=== PATIENT | female | born 1970 | race Caucasian/White ===

== ENCOUNTER 2023-11-21 11:31 | Observation (INO) | payer OTHER, SELFPAY ==
[2023-11-21] VITALS (18 sets, daily range): BP systolic 97–135; BP diastolic 46–83; PULSE 84–103; RESP 14–24; TEMP 36.8–37.6; O2SAT 96–100; BMI 23.1; BMI 27.5
--- NOTE | 2023-11-21 11:34 | ECG_ITS ---
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 Measurements Intervals [place] Rate: 99 P: 59 VT: 132 QRS: 59 QRSD: 77 T: 69 QT: 328 QTc: 422 Interpretive Statements SINUS RHYTHM No previous ECG available for comparison Electronically Signed On 11-22-2023 23:27:31 [employer] by Shiraz Carroll M.D. [id number]
--- NOTE | 2023-11-21 11:34 | XR_ITS ---
WS: [id number] Portable AP upright chest, 11/21/2023 Clinical Data: short of breath, cough Comparison: Portable chest, 07/07/2013 Findings: No nodules, masses or effusions are seen. The heart is normal. The pulmonary vascularity is not increased. No pneumonia or pneumothorax is seen. There is a hiatal hernia behind the heart. The right midclavicular fracture has healed. Impression: Negative chest.
--- NOTE | 2023-11-21 12:56 | ED_ITS ---
HPI - SOB/Dyspnea 2 General: Chief Complaint: Shortness of Breath/Dyspnea Stated Complaint: sob Time Seen by Provider: 11/21/23 12:56 History of Present Illness: HPI Narrative: 53-year-old female presents emergency de partment with complaints of increased shortness of breath worsening over the previous 1 month. She states she has exertional dyspnea that is worsening over the previous 1 week. She states she does have a history of Crohn's disease and has in the past required colon resection and then reanastomosis. 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 She states that she has not had a colonoscopy for over 10 years. Review of Systems 2 General: Reports: 10 or more systems reviewed and unremarkable except in HPI and below Const: Reports: fatigue and malaise GI: Reports: melena Physical Exam 2 Narrative: EXAM NARRATIVE: Constitutional: the patient appears well nourished and with normal development. Vital signs reviewed as documented. HENMT: Normocephalic, atraumatic. External ears normal appearance without drainage. Nose without drainage, normal appearance. Mucus membranes moist. Neck is supple, No jugular venous distension, trachea is midline, no appreciable carotid bruits. No lymphadenopathy. No meningeal signs. Flexion, extension and lateral rotation is without pain. Eyes: Pupils are equal, round, reactive to light and accommodation. No scleral icterus. Extra-ocular movement are intact. Thorax is symmetrical and with equal rise and fall with respirations. Resp: Lungs are clear to auscultation. No wheezes, rales, crackles or ronchi at present. Cardio: Regular rate and rhythm. Positive S1, S2. No appreciable murmurs, rubs or gallops. GI: Abdominal exam reveals normal bowel sounds to all quadrants. No organomegaly. No obvious palpable masses noted. No hepatomegally appreciated. Soft, non-tender to palpation. Extremity: Extremities are non-edematous and both femoral and pedal pulses are 2+ and equal bilaterally. Moves all extremities well, sensation in all extremities. Neuro: Alert and oriented x4, person, place, time and situation. Cranial nerves II through XII are grossly intact, there is no focal neurological deficits that I can appreciate at present. Motor strength in the upper and lower extremities are equal and bilateral 5/5. Psych: Cooperative, calm, normal thought process, appropriate judgment. Skin: No lesions, rashes. No gross abnormalities noted. Back: Symmetrical, no obvious deformity, No CVA tenderness Course 2 Vital Signs: Vital signs: Vital Signs Temperature 99.3 F 11/21/23 16:57 Pulse Rate 88 11/21/23 18:06 Respiratory Rate 14 11/21/23 16:37 Blood Pressure 118/46 11/21/23 18:00 Pulse Oximetry 97 11/21/23 18:00 Oxygen Delivery Me thod Room Air 11/21/23 15:30 MDM - SOB/Dyspnea Medical Decision Making Physical exam completed and documented, I will obtain laboratory evaluation to include a CBC, CMP, lipase, urinalysis, and a CT scan of the patient's abdomen pelvis to evaluate for possible differential diagnosis of bowel obstruction, incarcerated hernia, abdominal wall strain, abdominal wall hematoma, constipation. I will provide the patient IV access and IV fluid as well as a CT scan abdomen pelvis with contrast for evaluation for possible colitis, acute appendicitis, diverticulitis. I will admit the patient given her hemoglobin level was 5.7 I did discuss with the patient the need for admission and additional evaluation given her history of Crohn's disease. Lab Data I reviewed the patient's lab results. 11/21/23 14:45 11/21/23 14:45 Labs/Radiology: Radiology Impressions Chest/Abdomen/Pelvis CT 11/21/23 14:53 IMPRESSION: No acute findings. IMPRESSION: No acute findings. Laboratory Results WBC 5.59 10^3/uL (3.29-11.43) 11/21/23 14:45 RBC 3.26 10^6/uL (3.85-5.65) L 11/21/23 14:45 Hgb 5.70 g/dL (11.27-16.99) L* 11/21/23 14:45 Hct 21.6 % (36-47) L 11/21/23 14:45 MCV 66.3 fl (85-98) L 11/21/23 14:45 MCH 17.5 pg (27-33) L 11/21/23 14:45 MCHC 26.4 g/dL (30-55) L 11/21/23 14:45 RDW 18.5 % (12.1-15.1) H 11/21/23 14:45 Plt Count 510 10^3/cmm (157-399) H 11/21/23 14:45 MPV 9.0 fL (7.4-10.4) 11/21/23 14:45 Neut % (Auto) 63.5 % 11/21/23 14:45 Lymph % (Auto) 27.9 % 11/21/23 14:45 [place] % (Auto) 7.3 % 11/21/23 14:45 Eos % (Auto) 0.7 % 11/21/23 14:45 Baso % (Auto) 0.4 % 11/21/23 14:45 Neut # (Auto) 3.55 10^3/uL (1.8-7.7) 11/21/23 14:45 Lymph # (Auto) 1.6 10^3/uL (0.8-4.8) 11/21/23 14:45 [place] # (Auto) 0.4 10^3/uL (0.2-0.9) 11/21/23 14:45 Eos # (Auto) 0.0 10^3/uL (0.0-0.8) 11/21/23 14:45 Baso # (Auto) 0.0 10^3/uL (0.0-0.1) 11/21/23 14:45 Nucleated RBC % (auto) 0 % 11/21/23 14:45 Nucleated RBCs # 0.0 /100WBC 11/21/23 14:45 D-Dimer 0.46 ug/mLFEU (0-0.59) 11/21/23 14:45 Sodium 135 mmol/L (136-145) L 11/21/23 14:45 Potassium 3.4 mmol/L (3.5-5.1) L 11/21/23 14:45 Chloride 100 mmol/L (98-107) 11/21/23 14:45 Carbon Dioxide 25 mmol/L (22-29) 11/21/23 14:45 Anion Gap 13.4 (5-19) 11/21/23 14:45 BUN 11 mg/dL (6-20) 11/21/23 14:45 Creatinine 0.6 mg/dL (0.5-0.9) 11/21/23 14:45 GFR Calculation 103.8 mL/min (90-130) 11/21/23 14:45 Glucose 96 mg/dL (65-115) 11/21/23 14:45 Calculated Osmolality 279 mOsm/kg (285-295) L 11/21/23 14:45 Calcium 9.0 mg/dL (8.5-10.5) 11/21/23 14:45 Total Bilirubin 0.3 mg/dL (0.15-1.2) 11/21/23 14:45 AST 12 U/L (0-32) 11/21/23 14:45 ALT 7 U/L (0-33) 11/21/23 14:45 Alkaline Phosphatase 52 U/L (35-105) 11/21/23 14:45 Troponin T Baseline 8 ng/L (0-10) 11/21/23 14:45 NT-Pro-B Natriuret Pep 84 pg/mL (0-125) 11/21/23 14:45 Total Protein 7.0 g/dL (6.6-8.7) 11/21/23 14:45 Albumin 4.2 g/dL (3.5-5.2) 11/21/23 14:45 Globulin 2.8 g/dL (1.3-4.6) 11/21/23 14:45 SARS-CoV-2 Ag (Rapid) negative (Negative) 11/21/23 13:56 Blood Type O Positive 11/21/23 15:18 Rho(D) Type Rh positive 11/21/23 15:18 Antibody Screen Negative 11/21/23 15:18 Crossmatch See Detail 11/21/23 15:18 All radiology interpretation(s) finalized by discharge Discharge Plan Discharge Patient Disposition: Placed in Observation Admit Provider: James Dahl Clinical Impression: Crohn's disease, Anemia Gastrointestinal bleed Qualifiers: Gastritis type: unspecified gastritis Coding Level of Care Code ED 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
--- NOTE | 2023-11-21 13:54 | PC.PHAR ---
pt states she takes no prescription medications-states about 3 weeks ago she took some mucinex but hasnt taken it since-pt states a week ago she took 2 81mg aspirin and then 3 days ago took 2 more 81mg aspirins states she normally doesnt take-no meds pull up on ext med history
[2023-11-21 14:29] LABS: SARS Covid-2 Antigen negative (Negative)
--- NOTE | 2023-11-21 14:53 | CTR_ITS ---
PROCEDURE INFORMATION: Exam: CTA Chest With Contrast Exam date and time: 11/21/2023 3:26 PM Age: 53 years old Clinical indication: Other: Abnormal labs; Shortness of breath; Prior surgery; Surgery date: 6+ months; Surgery type: Colon; Additional info: Dyspnea/weakness TECHNIQUE: Imaging protocol: Computed tomographic angiography of the chest with contrast. Exam focused on the arteries. 3D rendering (Not supervised by radiologist): MIP and/or 3D reconstructed images were created by the technologist. Radiation optimization: All CT scans at this facility use at least one of these dose optimization techniques: automated exposure control; mA and/or kV adjustment per patient size (includes targeted exams where dose is matched to clinical indication); or iterative reconstruction. Contrast material: OMNI 350; Contrast volume: 100 ml; Contrast route: INTRAVENOUS (IV); COMPARISON: CR XR chest 1V portable [id number] 11/21/2023 12:40 PM RADIATION DOSE METRICS: Total DLP (mGy-cm): 957.36 FINDINGS: Pulmonary arteries: Normal. No pulmonary emboli. Aorta: Unremarkable. No aortic aneurysm. No aortic dissection. Lungs: Unremarkable. No consolidation. No masses. Pleural spaces: Unremarkable. No pneumothorax. No pleural effusion. Heart: Unremarkable. No cardiomegaly. No pericardial effusion. Lymph nodes: Unremarkable. No enlarged lymph nodes. Diaphragm: Moderate hiatal hernia. Bones/joints: Unremarkable. No acute fracture. Soft tissues: Unremarkable. PROCEDURE INFORMATION: Exam: CT Abdomen And Pelvis With Contrast Exam date and time: 11/21/2023 3:26 PM Age: 53 years old Clinical indication: Other: Abnormal labs; Shortness of breath; Prior surgery; Surgery date: 6+ months; Surgery type: Colon; Additional info: Dyspnea/weakness TECHNIQUE: Imaging protocol: Computed tomography of the abdomen and pelvis with contrast. Radiation optimization: All CT scans at this facility use at least one of these dose optimization techniques: automated exposure control; mA and/or kV adjustment per patient size (includes targeted exams where dose is matched to clinical indication); or iterative reconstruction. Contrast material: OMNI 350; Contrast volume: 100 ml; Contrast route: INTRAVENOUS (IV); COMPARISON: CR XR chest 1V portable [id number] 11/21/2023 12:40 PM RADIATION DOSE METRICS: Total DLP (mGy-cm): 957.36 FINDINGS: Liver: Small scattered hepatic cysts. Gallbladder and bile ducts: Normal. No calcified stones. No ductal dilation. Pancreas: Normal. No ductal dilation. Spleen: Normal. No splenomegaly. Adrenal glands: Normal. No mass. Kidneys and ureters: Normal. No hydronephrosis. Stomach and bowel: Unremarkable. No obstruction. No mucosal thickening. Appendix: No evidence of appendicitis. Intraperitoneal space: Unremarkable. No free air. No significant fluid collection. Vasculature: Unremarkable. No abdominal aortic aneurysm. Lymph nodes: Unremarkable. No enlarged lymph nodes. Urinary bladder: Unremarkable as visualized. Reproductive: Unremarkable as visualized. Bones/joints: Unremarkable. No acute fracture. Soft tissues: Unremarkable. CT/CT angio chest w abd pel w con IMPRESSION: No acute findings. IMPRESSION: No acute findings.
[2023-11-21 14:56] LABS: Basophils % 0.4 %; Eosinophils % 0.7 %; Hematocrit 21.6 % (36-47); Lymphocytes # 1.6 10^3/uL (0.8-4.8); Lymphocytes % 27.9 %; Mean Corpuscular HGB Conc 26.4 g/dL (30-55); Mean Corpuscular Hemoglobin 17.5 pg (27-33); Mean Corpuscular Volume 66.3 fl (85-98); Monocytes # 0.4 10^3/uL (0.2-0.9); Monocytes % 7.3 %; Neutrophils # 3.55 10^3/uL (1.8-7.7); Neutrophils % 63.5 %; Nucleated Red Blood Cells % 0 %; Platelet Count 510 10^3/cmm (157-399); Red Blood Count 3.26 10^6/uL (3.85-5.65); Red Cell Distribution Width 18.5 % (12.1-15.1); White Blood Count 5.59 10^3/uL (3.29-11.43)
[2023-11-21 15:09] LABS: D Dimer 0.46 ug/mLFEU (0-0.59)
[2023-11-21 15:14] LABS: Troponin(5th) Baseline 8 ng/L (0-10)
[2023-11-21 15:23] LABS: Alanine Aminotransferase 7 U/L (0-33); Albumin Level 4.2 g/dL (3.5-5.2); Alkaline Phosphatase 52 U/L (35-105); Anion Gap 13.4 (5-19); Aspartate Amino Transferase 12 U/L (0-32); Blood Urea Nitrogen 11 mg/dL (6-20); Carbon Dioxide 25 mmol/L (22-29); Chloride 100 mmol/L (98-107); Globulin 2.8 g/dL (1.3-4.6); Glomerular Filtration Rate 103.8 mL/min (90-130); Glucose 96 mg/dL (65-115); NT Pro B Type Natriuretic Pept 84 pg/mL (0-125); Osmolality Calculated 279 mOsm/kg (285-295); Potassium 3.4 mmol/L (3.5-5.1); Sodium 135 mmol/L (136-145); Total Bilirubin 0.3 mg/dL (0.15-1.2)
[2023-11-21] MEDS: iohexol 350 mg/mL 500 mL Btl (per mL) IV (15:29)
[2023-11-21] MEDS: sodium chloride 0.9% 100 mL Bag 50 ML IV (18:04)
--- NOTE | 2023-11-21 18:04 | P.HP_ITS ---
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 Fairly active for her age, does not smoke or drink alcohol. She does not take multivitamins on daily basis. No chest pain but noticed some heaviness all over her body. In the ER she has been diagnosed with acute microcytic severe anemia she has been given 2 unit PRBC Review of Systems 2 Const: Denies: fever(s) Eyes: Denies: change in vision ENMT: Denies: throat pain Card: Denies: chest pain Resp: Denies: dyspnea GI: Denies: abdominal pain Medications/Allergies Home Medications Medication Instructions Recorded Confirmed Last Taken Type aspirin 81 mg tablet,delayed 162 mg PO .ONE TIME DOSE 11/21/23 11/21/23 3 Days Ago History release ~11/18/23 doesnt normally take Allergies Allergy/AdvReac Type Severity Reaction Status Date / Time No Known Allergies Allergy Verified 11/21/23 13:52 PFSH Acute 2 PFSH: Medical History Crohn's disease Vitals/I&O/Wt Last Vital Signs Temp 99.3 F 11/21/23 16:57 Pulse 96 11/21/23 16:37 Resp 14 11/21/23 16:37 BP 118/46 11/21/23 17:45 Pulse Ox 98 11/21/23 17:45 O2 Del Method Room Air 11/21/23 15:30 11/21/23 11/21/23 11/21/23 06:59 14:59 22:59 Intake Total 0 / 0 Balance 0 / 0 Weight last 48 hrs Weight 61.235 kg Physical Exam 2 Narrative: Pleasant cooperative Hemodynamically stable GCS 15 Currently on room air Abdomen soft No active GI bleed Pleasant cooperative Doing well on room air Data 11/22/23 04:16 11/22/23 04:16 A&P Assessment and plan (1) Gastrointestinal bleed: Qualifiers: Gastritis type: unspecified gastritis (2) Crohn's disease: (3) Anemia: (4) Iron deficiency anemia: (5) Low vitamin B12 level: Plan Acute microcytic anemia Requested 2 unit PRBC Check iron, B12, no active GI bleed, hemodynamic stable Admit to [facility] Anticipating discharge within 48 hours DVT prophylaxis contraindicated only use SCDs Patient will need colonoscopy outpatient, requested TSH as well Attestations 2 Medical Necessity Statement*: Likely discharge tomorrow, anticipating less than 48 hours in the hospital Diagnoses Gastrointestinal bleed K92.2 Gastritis type: unspecified gastritis Crohn's disease K50.90 Anemia D64.9 Iron deficiency anemia D50.9 Low vitamin B12 level R79.89
[2023-11-21 19:49] LABS: Ferritin 8 ng/mL (15-150); Iron 9 ug/dL (37-145); Percent Saturation 1.9 % (20-50); Thyroid Stimulating Hormone 0.99 uIU/mL (0.27-4.20); Total Iron Binding Capacity 472 mcg/dl; Unsaturated Iron Binding 463 ug/dL (112-347); Vitamin B12 273 pg/mL (232-1245)
[2023-11-22] VITALS: BP 117/77; PULSE 97; RESP 17; TEMP 37; O2SAT 97
[2023-11-22 01:19] LABS: Troponin 5 2HR 9.25 ng/L (0-10)
[2023-11-22 01:27] LABS: Troponin 5 2HR Delta 1.25 ABS# (0-10)
[2023-11-22 01:28] LABS: Hematocrit 29.6 % (36-47)
[2023-11-22 04:31] VITALS: BP 103/68; PULSE 79; RESP 17; TEMP 36.9; O2SAT 96
[2023-11-22 05:14] LABS: Basophils % 0.4 %; Eosinophils # 0.2 10^3/uL (0.0-0.8); Eosinophils % 2.6 %; Hematocrit 29.2 % (36-47); Lymphocytes # 2.5 10^3/uL (0.8-4.8); Lymphocytes % 35.6 %; Mean Corpuscular HGB Conc 28.8 g/dL (30-55); Mean Corpuscular Hemoglobin 20.6 pg (27-33); Mean Corpuscular Volume 71.6 fl (85-98); Mean Platelet Volume 10.4 fL (7.4-10.4); Monocytes # 0.5 10^3/uL (0.2-0.9); Monocytes % 7.6 %; Neutrophils # 3.71 10^3/uL (1.8-7.7); Neutrophils % 53.7 %; Nucleated Red Blood Cells % 0 %; Platelet Count 311 10^3/cmm (157-399); Red Blood Count 4.08 10^6/uL (3.85-5.65); Red Cell Distribution Width 20.8 % (12.1-15.1); White Blood Count 6.93 10^3/uL (3.29-11.43)
[2023-11-22 05:39] VITALS: BMI 27.3
[2023-11-22 05:44] LABS: Alanine Aminotransferase 6 U/L (0-33); Albumin Level 3.7 g/dL (3.5-5.2); Alkaline Phosphatase 52 U/L (35-105); Anion Gap 14.4 (5-19); Aspartate Amino Transferase 12 U/L (0-32); Blood Urea Nitrogen 7 mg/dL (6-20); Calcium 8.3 mg/dL (8.5-10.5); Carbon Dioxide 24 mmol/L (22-29); Chloride 105 mmol/L (98-107); Globulin 2.5 g/dL (1.3-4.6); Glomerular Filtration Rate 103.8 mL/min (90-130); Glucose 93 mg/dL (65-115); Magnesium 2.2 mg/dL (1.7-2.3); Osmolality Calculated 288 mOsm/kg (285-295); Potassium 3.4 mmol/L (3.5-5.1); Sodium 140 mmol/L (136-145); Total Bilirubin 0.5 mg/dL (0.15-1.2); Total Protein 6.2 g/dL (6.6-8.7)
[2023-11-22 06:05] LABS: Troponin 5 6HR 10.79 ng/L (0-10)
[2023-11-22 06:06] LABS: Troponin 5 6HR Delta 2.79 ng/L (0-12)
[2023-11-22 07:51] VITALS: BP 92/61; PULSE 75; RESP 18; TEMP 36.9; O2SAT 97
[2023-11-22 08:25] VITALS: PULSE 75; RESP 16; O2SAT 97
[2023-11-22] MEDS: pantoprazole 40 mg SDV IVP (09:28)
--- NOTE | 2023-11-22 10:24 | PM.DCS ---
Discharge Providers Date of Admission: 11/21/23 17:18 Date of Discharge: November 22, 2023 Attending Provider at Admission: James Dahl MD Attending Provider at Discharge: James Dahl MD Primary Care Provider: Dann Leon Diagnoses at Discharge Discharge Diagnosis (1) Gastrointestinal bleed: Status: Acute Qualifiers: Gastritis type: unspecified gastritis (2) Crohn's disease: Status: Inactive (3) Anemia: Status: Acute (4) Iron deficiency anemia: Status: Acute (5) Low vitamin B12 level: Status: Acute Reason for Visit Reason for Visit: sob Hospital Course Hospital Course 53 female who was admitted for management evaluation of fatigue lethargy related to severe anemia, she does have low iron, low vitamin B12, she has been given 1 bag of iron 2 unit PRBC, patient will need an EGD and colonoscopy in outpatient settings, hemodynamically stable, no active GI bleed, no history of thalassemia, D-dimer unremarkable Patient is wanting to return home agreeable to follow-up with a general surgeon for her endoscopy. No previous history of cancer. Disease in remission. I will give her iron, B12, Protonix and sucralfate Physical Exam Narrative: Awake and alert GCS 15 Pleasant cough Abdomen soft S1, S2 Discharge Data Studies Completed and Pending Completed Studies During Hospitalization Category Date Time Status CT angio chest w abd pel w con Stat Cat Scan 11/21/23 14:53 Completed XR chest 1V portable [id number] Stat Exams 11/21/23 11:34 Completed Pending at discharge Category Date Time Status Leukocyte Reduced RBC Stat Lab 11/21/23 15:18 Results Type and Screen Stat Lab 11/21/23 15:18 Results Radiology Impressions Chest/Abdomen/Pelvis CT 11/21/23 14:53 IMPRESSION: No acute findings. IMPRESSION: No acute findings. Laboratory Results WBC 6.93 10^3/uL (3.29-11.43) 11/22/23 04:16 RBC 4.08 10^6/uL (3.85-5.65) 11/22/23 04:16 Hgb 8.40 g/dL (11.27-16.99) L 11/22/23 04:16 Hct 29.2 % (36-47) L 11/22/23 04:16 MCV 71.6 fl (85-98) L D 11/22/23 04:16 MCH 20.6 pg (27-33) L D 11/22/23 04:16 MCHC 28.8 g/dL (30-55) L D 11/22/23 04:16 RDW 20.8 % (12.1-15.1) H 11/22/23 04:16 Plt Count 311 10^3/cmm (157-399) D 11/22/23 04:16 MPV 10.4 fL (7.4-10.4) 11/22/23 04:16 Neut % (Auto) 53.7 % 11/22/23 04:16 Lymph % (Auto) 35.6 % 11/22/23 04:16 [place] % (Auto) 7.6 % 11/22/23 04:16 Eos % (Auto) 2.6 % 11/22/23 04:16 Baso % (Auto) 0.4 % 11/22/23 04:16 Neut # (Auto) 3.71 10^3/uL (1.8-7.7) 11/22/23 04:16 Lymph # (Auto) 2.5 10^3/uL (0.8-4.8) 11/22/23 04:16 [place] # (Auto) 0.5 10^3/uL (0.2-0.9) 11/22/23 04:16 Eos # (Auto) 0.2 10^3/uL (0.0-0.8) 11/22/23 04:16 Baso # (Auto) 0.0 10^3/uL (0.0-0.1) 11/22/23 04:16 Nucleated RBC % (auto) 0 % 11/22/23 04:16 Nucleated RBCs # 0.0 /100WBC 11/22/23 04:16 D-Dimer 0.46 ug/mLFEU (0-0.59) 11/21/23 14:45 Sodium 140 mmol/L (136-145) 11/22/23 04:16 Potassium 3.4 mmol/L (3.5-5.1) L 11/22/23 04:16 Chloride 105 mmol/L (98-107) 11/22/23 04:16 Carbon Dioxide 24 mmol/L (22-29) 11/22/23 04:16 Anion Gap 14.4 (5-19) 11/22/23 04:16 BUN 7 mg/dL (6-20) 11/22/23 04:16 Creatinine 0.6 mg/dL (0.5-0.9) 11/22/23 04:16 GFR Calculation 103.8 mL/min (90-130) 11/22/23 04:16 Glucose 93 mg/dL (65-115) 11/22/23 04:16 Calculated Osmolality 288 mOsm/kg (285-295) 11/22/23 04:16 Calcium 8.3 mg/dL (8.5-10.5) L 11/22/23 04:16 Magnesium 2.2 mg/dL (1.7-2.3) 11/22/23 04:16 Iron 9 ug/dL (37-145) L 11/21/23 14:45 TIBC 472 mcg/dl 11/21/23 14:45 % Saturation 1.9 % (20-50) L 11/21/23 14:45 Unsat Iron Binding 463 ug/dL (112-347) H 11/21/23 14:45 Ferritin 8 ng/mL (15-150) L 11/21/23 14:45 Total Bilirubin 0.5 mg/dL (0.15-1.2) 11/22/23 04:16 AST 12 U/L (0-32) 11/22/23 04:16 ALT 6 U/L (0-33) 11/22/23 04:16 Alkaline Phosphatase 52 U/L (35-105) 11/22/23 04:16 Troponin T Baseline 8 ng/L (0-10) 11/21/23 14:45 Troponin T 120 Minute 9.25 ng/L (0-10) 11/22/23 00:30 Delta Troponin T 1.25 ABS# (0-10) 11/22/23 00:30 Troponin T Hi Sens 6Hr 10.79 ng/L (0-10) H 11/22/23 04:16 Troponin T Hi Sens 6Hr Delta 2.79 ng/L (0-12) 11/22/23 04:16 NT-Pro-B Natriuret Pep 84 pg/mL (0-125) 11/21/23 14:45 Total Protein 6.2 g/dL (6.6-8.7) L 11/22/23 04:16 Albumin 3.7 g/dL (3.5-5.2) 11/22/23 04:16 Globulin 2.5 g/dL (1.3-4.6) 11/22/23 04:16 Vitamin B12 273 pg/mL (232-1245) 11/21/23 14:45 TSH 0.99 uIU/mL (0.27-4.20) 11/21/23 14:45 SARS-CoV-2 Ag (Rapid) negative (Negative) 11/21/23 13:56 Blood Type O Positive 11/21/23 15:18 Rho(D) Type Rh positive 11/21/23 15:18 Antibody Screen Negative 11/21/23 15:18 Crossmatch See Detail 11/21/23 15:18 Vitals Last Vital Signs Temp 98.4 F 11/22/23 07:51 Pulse 75 11/22/23 08:25 Resp 16 11/22/23 08:25 BP 92/61 11/22/23 07:51 Pulse Ox 97 11/22/23 08:25 O2 Del Method Room Air 11/22/23 08:25 Discharge Plan Discharge Patient Disposition: Home Condition: Stable Prescriptions: New ferrous sulfate [Feosol] 325 mg (65 mg iron) tablet 325 mg PO DAILY Qty: 120 1RF pantoprazole [Protonix] 40 mg tablet,delayed release (DR/EC) 40 mg PO BID 56 Days Qty: 112 0RF mecobalamin (vitamin B12) [B12 Active] 1,000 mcg tablet,chewable 1,000 mcg PO DAILY Qty: 90 0RF sennosides-docusate sodium [Senexon-S] 8.6-50 mg tablet 1 tab-cap PO DAILY PRN (Reason: constipation) Qty: 20 0RF sucralfate 100 mg/mL suspension 1 g PO BID 56 Days Qty: 1120 0RF Discontinued aspirin [Aspir-81] 81 mg Tablet,Delayed Release (Dr/Ec) 162 mg PO .ONE TIME DOSE Discharge Orders: Discharge Order (Routine); Ordered 11/22/23 Ordered By: James Dahl Referrals: Dann Leon FNP [Primary Care Provider] - (We have notified your physician's clinic of the need for a follow-up appointment to be scheduled. If you have not heard from them within the next 2 business days, please call them directly. ) Guillermo Mayer DO [Physician] - 3 weeks (need egd and colonoscopy) Patient Instructions: Opioid Safety Discharge Attestations Time Spent in Discharge Care*: greater than 30 min Quality Metrics Clinical Quality Measures [ No reported AMI, CVA or VTE this stay] Coding Level of Care Code Acute Code for Chg Fwd Diagnoses Gastrointestinal bleed K92.2 Gastritis type: unspecified gastritis Crohn's disease K50.90 Anemia D64.9 Iron deficiency anemia D50.9 Low vitamin B12 level R79.89
[2023-11-22] MEDS: iron sucrose 200 MG in sodium chloride 0.9% (100 ml) 100 ML 220 MG IV (10:32)
[2023-11-22 11:47] VITALS: BP 92/61; PULSE 75; RESP 16; TEMP 36.9; O2SAT 97
== END 2023-11-22 11:47 | disposition home or self-care (01) ==
LOC: ER 17:18 → MEDSURG 11-22 10:13
PROVIDERS: Physician Assistant; Admitting Provider Internal Medicine; Emergency Provider Internal Medicine; PCP Nurse Practitioner Family; Visit Provider Internal Medicine
DX: K92.2 Gastrointestinal hemorrhage, unspecified (principal); K50.90 Crohn's disease, unspecified, without complications; D50.9 Iron deficiency anemia, unspecified; R79.89 Other specified abnormal findings of blood chemistry
CPT/HCPCS: 36415; 36430; 71045; 71275; 74177; 80053; 82607; 82728; 83540; 83550; 83735; 83880; 84443; 84484; 85014; 85018; 85025; 85378; 86850; 86900; 86920; 87426; 93005; 96365; 96366; 96375; 99285; C9113; G0378; J1756; P9016; Q9967

== ENCOUNTER → 2023-12-04 13:22 | Outpatient (BNVA) | payer OTHER, SELFPAY | PROVIDERS: PCP Registered Nurse; Visit Provider Registered Nurse | DX: D50.9 Iron deficiency anemia, unspecified (principal); R79.89 Other specified abnormal findings of blood chemistry; K50.90 Crohn's disease, unspecified, without complications; D50.8 Other iron deficiency anemias; K29.71 Gastritis, unspecified, with bleeding | CPT/HCPCS: 82607; 85025 ==

== ENCOUNTER → 2024-05-18 10:08 | Outpatient (BNVA) | payer OTHER, SELFPAY | PROVIDERS: PCP Registered Nurse; Visit Provider Registered Nurse | DX: D50.8 Other iron deficiency anemias (principal); I10 Essential (primary) hypertension; E53.8 Deficiency of other specified B group vitamins | CPT/HCPCS: 80053; 82607; 85025 ==

== ENCOUNTER → 2025-02-24 10:59 | Outpatient (BNVA) | payer OTHER, SELFPAY | PROVIDERS: PCP Registered Nurse; Visit Provider Registered Nurse | DX: D64.9 Anemia, unspecified (principal) | CPT/HCPCS: 80053; 85025 ==